=== PATIENT | male | born 1950 | race Caucasian/White ===

== ENCOUNTER → 2017-04-05 | Outpatient (REF) | payer MEDICARE ==
[2017-04-06 10:17] LABS: HEPATITIS B SURFACE ANTIBODY NEGATIVE (POSITIVE)
== END ==
LOC: M LAB REF 13:38
PROVIDERS: ATTEND Internal Medicine Nephrology
DX: N18.6 End stage renal disease (principal); D63.1 Anemia in chronic kidney disease

== ENCOUNTER 2017-07-10 05:41 | Day surgery (SDC) | payer MEDICARE ==
[~2017-07-10] VITALS: Ht 170.2 cm; Wt 83.9 kg
[~2017-07-10 05:41] MED LIST: ALLO100T PO; AMLO5TAB2; DOXA1TAB41; FINA5TAB2; FURO40TA2 PO; RENATAB5 PO; SPIR25TA2 PO
[2017-07-10] MEDS ORDERED: NS 1,000 ML IV SCH (06:00)
[2017-07-10] MEDS ORDERED: LIDOCAINE 2% INJ 100 MG/5 ML SDV (FOR ANES.) As Ordered ONE (07:18)
[2017-07-10] MEDS ORDERED: fentaNYL 100 MCG/2 ML INJECTION (J3010) As Ordered ONE (07:18)
[2017-07-10] MEDS ORDERED: MIDAZOLAM INJ 2 MG/2 ML VIAL (J2250) As Ordered ONE (07:18)
[2017-07-10] MEDS ORDERED: PROPOFOL 200 MG/20 ML VIAL As Ordered ONE (07:18)
[2017-07-10] MEDS ORDERED: ePHEDrine SULFATE 25 MG/5 ML(5MG/ML) SYRINGE As Ordered ONE (07:53)
[2017-07-10] MEDS ORDERED: PHENYLephrine HCL 500 MCG/5 ML (100MCG/ML) SYRINGE (J2370) As Ordered ONE (07:53)
--- NOTE | 2017-07-10 08:00 | ROOR ---
Patient Name: Olegario Mccall Procedure Date: 07/10/2017 7:16 AM Date of : 1950 Age: 67 Room: Main OR Gender: Male Note Status: Finalized Procedure: Colonoscopy Indications: Screening for colorectal malignant neoplasm Providers: Geovany England Jr, MD Referring MD: Maciej De Jesus MD Requesting Provider: Medicines: Propofol per Anesthesia Complications: No immediate complications. Procedure: Pre-Anesthesia Assessment: - Prior to the procedure, a History and Physical was performed, and patient medications and allergies were reviewed. The patient is competent. The risks and benefits of the procedure and the sedation options and risks were discussed with the patient. All questions were answered and informed consent was obtained. Patient identification and proposed procedure were verified by the physician and the nurse in the pre-procedure area and in the procedure room. Mental Status Examination: alert and oriented. Airway Examination: normal oropharyngeal airway and neck mobility. Respiratory Examination: clear to auscultation. CV Examination: normal. ASA Grade Assessment: II - A patient with mild systemic disease. After reviewing the risks and benefits, the patient was deemed in satisfactory condition to undergo the procedure. The anesthesia plan was to use moderate sedation / analgesia (conscious sedation). Immediately prior to administration of medications, the patient was re-assessed for adequacy to receive sedatives. The heart rate, respiratory rate, oxygen saturations, blood pressure, adequacy of pulmonary ventilation, and response to care were monitored throughout the procedure. The physical status of the patient was re-assessed after the procedure. The Colonoscope was introduced through the anus and advanced to the cecum, identified by appendiceal orifice and ileocecal valve. The colonoscopy was performed without difficulty. The patient tolerated the procedure well. The quality of the bowel preparation was adequate and excellent. Findings: The rectum, recto-sigmoid colon, sigmoid colon, descending colon, transverse colon, hepatic flexure, ascending colon, appendiceal orifice and ileocecal valve appeared normal. Three sessile polyps were found in the cecum. The polyps were diminutive in size. These polyps were removed with a jumbo cold forceps. Resection and retrieval were complete. Impression: - The rectum, recto-sigmoid colon, sigmoid colon, descending colon, transverse colon, hepatic flexure, ascending colon, appendiceal orifice and ileocecal valve are normal. - Three diminutive polyps in the cecum, removed with a jumbo cold forceps. Resected and retrieved. Recommendation: - Discharge patient to home (ambulatory). - Repeat colonoscopy in 5-10 years for surveillance based on pathology results. Geovany England MD Geovany England Jr, MD 07/10/2017 8:00:18 AM This report has been signed electronically. Number of Addenda: 0 Note Initiated On: 07/10/2017 7:16 AM Estimated Blood Loss: Estimated blood loss: none.
[2017-07-10 08:20] VITALS: BP 106/59
== END 2017-07-10 08:45 | disposition home or self-care (01) ==
LOC: M SDC 05:41
PROVIDERS: ATTEND Surgery
DX: Z12.11 Encounter for screening for malignant neoplasm of colon (principal); D12.0 Benign neoplasm of cecum; I12.0 Hypertensive chronic kidney disease with stage 5 chronic kidney disease or end stage renal disease; R29.898 Other symptoms and signs involving the musculoskeletal system; N18.6 End stage renal disease; T82.9XXD Unspecified complication of cardiac and vascular prosthetic device, implant and graft, subsequent encounter; M10.9 Gout, unspecified; Z91.041 Radiographic dye allergy status; Z79.899 Other long term (current) drug therapy; Z87.891 Personal history of nicotine dependence
CPT/HCPCS: 36415; 45380; 84132; 88305; J2250; J2370; J3010

== ENCOUNTER → 2018-06-19 | Outpatient (CLI) | payer MEDICARE, OTHER | LOC: M EKG 10:23 | DX: R00.1 Bradycardia, unspecified (principal); I12.9 Hypertensive chronic kidney disease with stage 1 through stage 4 chronic kidney disease, or unspecified chronic kidney disease; N18.9 Chronic kidney disease, unspecified | CPT/HCPCS: 93005 ==

== ENCOUNTER 2018-06-25 12:13 | Day surgery (SDC) | payer MEDICARE, OTHER ==
[2018-06-25 12:56] LABS: POTASSIUM SERUM 4.2 MEQ/L (3.5-5.1)
[2018-06-25] MEDS: D5W/0.2% SODIUM CHLORIDE 1,000 ML IV (13:03)
[2018-06-25] MEDS ORDERED: PROPOFOL 200 MG/20 ML VIAL As Ordered ×2 (15:12→15:50)
[2018-06-25] MEDS ORDERED: MIDAZOLAM INJ 2 MG/2 ML VIAL (J2250) As Ordered (15:12)
[2018-06-25] MEDS ORDERED: ONDANSETRON 4MG/2ML VIAL (J2405) As Ordered (15:12)
[2018-06-25] MEDS ORDERED: fentaNYL 100 MCG/2 ML INJECTION (J3010) As Ordered (15:12)
[2018-06-25] MEDS ORDERED: LIDOCAINE 2% INJ 100 MG/5 ML SDV (FOR ANES.) As Ordered (15:12)
[2018-06-25] MEDS: LIDOCAINE 1% SDV INJ 30 ML VIAL As Ordered (15:27)
[2018-06-25] MEDS ORDERED: ePHEDrine SULFATE 25 MG/5 ML(5MG/ML) SYRINGE As Ordered (15:31)
[2018-06-25] MEDS ORDERED: PHENYLephrine HCL 500 MCG/5 ML (100MCG/ML) SYRINGE (J2370) As Ordered (15:49)
[2018-06-25] MEDS: HEPARIN SOD (PORCINE) 5000 UNITS/ML VIAL As Ordered (16:05)
== END 2018-06-25 17:20 | disposition home or self-care (01) ==
LOC: M SDC 12:13
DX: N18.6 End stage renal disease (principal); I12.0 Hypertensive chronic kidney disease with stage 5 chronic kidney disease or end stage renal disease; M10.9 Gout, unspecified; Z91.041 Radiographic dye allergy status; Z79.899 Other long term (current) drug therapy; Z87.891 Personal history of nicotine dependence; Z99.2 Dependence on renal dialysis
CPT/HCPCS: 49421

== ENCOUNTER → 2024-02-20 | Outpatient (REF) ==
[~2024-02-20] MED LIST changes: +ACET-683 PO; +AMLO1TAB24 PO; -AMLO5TAB2; +HYDR-3715 PO; +SPIR-10 PO; -SPIR25TA2 PO
== END ==
LOC: M LAB REF 15:09
PROVIDERS: ATTEND Internal Medicine Nephrology
DX: D72.829 Elevated white blood cell count, unspecified (principal)

== ENCOUNTER → 2025-09-07 | Outpatient (CLI) | payer MEDICARE, OTHER | LOC: M PLAIMG 12:15 | PROVIDERS: ATTEND Internal Medicine Nephrology | DX: R06.02 Shortness of breath (principal) ==